=== PATIENT | male | born 1950 | race Caucasian/White ===

== ENCOUNTER 2023-03-19 21:12 | Emergency (ER) | payer BC ==
[2023-03-19] MEDS ORDERED: Ketorolac 30 MG/ML SDV IM ONE (23:03)
[2023-03-19] MEDS ORDERED: Acetaminophen/HYDROcodone 325-5 MG Tab PO ONE (23:03)
== END 2023-03-19 23:55 | disposition home or self-care (01) ==
LOC: JP.ED 21:12
DX: S76.302A Unspecified injury of muscle, fascia and tendon of the posterior muscle group at thigh level, left thigh, initial encounter (principal); V91.87XA Other injury due to other accident to water-skis, initial encounter
CPT/HCPCS: 96372; 99283; A9270; J1885